=== PATIENT | female | born 2000 | race African-American/Black ===

== ENCOUNTER 2019-02-01 10:35 | Emergency (ER) | payer MEDICAID, SELFPAY ==
[~2019-02-01] VITALS: Ht 162.6 cm; Wt 59.5 kg
--- NOTE | 2019-02-01 11:22 | NUR ---
NEWS PRODUCTION ASSISTANT: PT TO ROOM FROM [facility].
--- NOTE | 2019-02-01 11:30 | NUR ---
PT AMBULATORY TO ROOM 19 W/ C/O LOWER BILAT ABD PAIN. HX OVARIAN CYSTS. PT STATES PAIN FOR A WHILE NOW. PT ALSO STATES SHE HAS N/V X2 THIS AM. DIARRHEA X 2 DAYS. PT RESTING ON GURNEY. NADN. VSS. MONITORS APPLIED. ERP DR. PICKETT AT BEDSIDE.
[2019-02-01] MEDS ORDERED: MORPHINE SULFATE 4 MG/ML, 1ML ONE (11:50)
[2019-02-01] MEDS ORDERED: ONDANSETRON 2MG/ML, 2ML ONE (11:50)
[2019-02-01] MEDS ORDERED: ONDANSETRON 2MG/ML, 2ML IVPush ONE (12:00)
[2019-02-01] MEDS ORDERED: MORPHINE SULFATE 4 MG/ML, 1ML IVPush PRN (12:00)
--- NOTE | 2019-02-01 12:12 | NUR ---
PT RESTING ON GURNEY. NADN. BARTON.
[2019-02-01 12:18] LABS: ALBUMIN 4.5 g/dL (3.4-5.0); ANION GAP 5 mmol/L (5-15); CALCIUM 8.9 mg/dL (8.5-10.1); CHLORIDE 110 mmol/L (98-107)
[2019-02-01 12:20] LABS: MICROSCOPIC NOT IND
[2019-02-01 12:22] LABS: CULTURE INDICATED? NO
[2019-02-01 12:28] LABS: ALANINE AMINOTRANSFERASE 20 U/L (12-78); ALKALINE PHOSPHATASE 77 U/L (45-117); BILIRUBIN,TOTAL 0.4 mg/dL (0.2-1.0); CREATININE 0.93 mg/dL (0.55-1.02); TOTAL PROTEIN 8.5 g/dL (6.4-8.2)
[2019-02-01 12:40] LABS: MEAN CORPUSCULAR HEMOGLOBIN 30.3 pg (27.0-34.8); MEAN CORPUSCULAR HGB CONC 32.4 g/dL (32.4-35.8); MEAN CORPUSCULAR VOLUME 93.4 fL (80-100); MEAN PLATELET VOLUME 9.6 fL (7.4-10.4); PLATELET COUNT 209 x10^3/uL (130-400); RED BLOOD COUNT 4.58 x10^6/uL (3.82-5.3); RED CELL DISTRIBUTION WIDTH 15.3 % (9.6-15.2)
[2019-02-01 12:55] LABS: BASOPHILS # (AUTO) 0.02 x10^3/uL (0-0.3); BASOPHILS % (AUTO) 0 % (0-1); EOSINOPHILS # (AUTO) 0.01 x10^3/uL (0-0.8); EOSINOPHILS % (AUTO) 0 % (1-7); LYMPHOCYTES # (AUTO) 1.13 x10^3/uL (1-6.1); LYMPHOCYTES % (AUTO) 18 % (22-44); MD SCAN; MONOCYTES # (AUTO) 0.35 x10^3/uL (0-1.4); MONOCYTES % (AUTO) 6 % (2-9); NEUTROPHILS # (AUTO) 4.68 x10^3/uL (1.8-8.0); NEUTROPHILS % (AUTO) 76 % (42-75)
[2019-02-01] MEDS ORDERED: OMNIPAQUE 350 MG/ML, 100ML BOTTLE ONE (12:56)
[2019-02-01 12:58] VITALS: BP 132/47
--- NOTE | 2019-02-01 12:58 | NUR ---
PT RESTING ON GURNEY. NADN. BARTON.
--- NOTE | 2019-02-01 13:16 | NUR ---
PT CHART REVIEWED AND PLACED FOR RECHECK.
== END 2019-02-01 13:57 | disposition home or self-care (01) ==
LOC: ED 11:52
DX: R10.2 Pelvic and perineal pain (principal)
CPT/HCPCS: 36415; 74177; 80053; 81003; 83690; 84703; 85025; 96374; 96375; 99284; J2405; Q9967

== ENCOUNTER 2019-09-26 23:43 | Emergency (ER) | payer MEDICAID ==
[~2019-09-26] VITALS: Ht 167.6 cm; Wt 63.0 kg
--- NOTE | 2019-09-27 00:40 | NUR ---
PT AMBULATED TO BR. URINE SAMPLE OBTAINED.
[2019-09-27 00:42] LABS: MEAN CORPUSCULAR HEMOGLOBIN 31.2 pg (27.0-34.8); MEAN CORPUSCULAR HGB CONC 32.2 g/dL (32.4-35.8); MEAN CORPUSCULAR VOLUME 96.9 fL (80-100); MEAN PLATELET VOLUME 9.2 fL (7.4-10.4); PLATELET COUNT 205 x10^3/uL (130-400); RED BLOOD COUNT 4.58 x10^6/uL (3.82-5.3); RED CELL DISTRIBUTION WIDTH 15.1 % (9.6-15.2)
[2019-09-27 00:43] LABS: ALBUMIN 3.5 g/dL (3.4-5.0); ANION GAP 2 mmol/L (5-15); CALCIUM 8.6 mg/dL (8.5-10.1); CHLORIDE 110 mmol/L (98-107)
[2019-09-27 01:12] LABS: BASOPHILS # (AUTO) 0.03 x10^3/uL (0-0.1); BASOPHILS % (AUTO) 1 % (0-1); EOSINOPHILS # (AUTO) 0.04 x10^3/uL (0-0.4); EOSINOPHILS % (AUTO) 1 % (1-7); LYMPHOCYTES # (AUTO) 1.53 x10^3/uL (1-3.4); LYMPHOCYTES % (AUTO) 36 % (22-44); MD SCAN; MONOCYTES # (AUTO) 0.61 x10^3/uL (0.2-0.8); MONOCYTES % (AUTO) 14 % (2-9); NEUTROPHILS # (AUTO) 2.01 x10^3/uL (1.8-6.8); NEUTROPHILS % (AUTO) 48 % (42-75)
[2019-09-27 01:19] LABS: MICROSCOPIC NOT IND
[2019-09-27 01:23] LABS: CULTURE INDICATED? NO
[2019-09-27 02:07] VITALS: BP 111/70
== END 2019-09-27 02:10 | disposition home or self-care (01) ==
LOC: ED 09-27 01:06
DX: R10.30 Lower abdominal pain, unspecified (principal); R11.0 Nausea; F17.210 Nicotine dependence, cigarettes, uncomplicated
CPT/HCPCS: 36415; 76830; 80048; 81003; 82040; 84703; 85025; 99284